=== PATIENT | male | born 1990 | race Two or more races ===

== ENCOUNTER 2018-01-15 00:28 | Emergency (ER) | payer OTHER ==
[~2018-01-15] VITALS: Ht 172.7 cm; Wt 74.8 kg
[2018-01-15 00:56] VITALS: BP 145/83
[2018-01-15] MEDS ORDERED: LIDOCAINE W/ EPINEPHRINE 1% 20ML VIAL ID ONE (03:30)
== END 2018-01-15 04:33 | disposition home or self-care (01) ==
LOC: ER 00:28
DX: S01.112A Laceration without foreign body of left eyelid and periocular area, initial encounter (principal); Z88.2 Allergy status to sulfonamides; W19.XXXA Unspecified fall, initial encounter; Y93.89 Activity, other specified; Y99.8 Other external cause status; Y92.89 Other specified places as the place of occurrence of the external cause
CPT/HCPCS: 12014; 70486